=== PATIENT | female | born 1960 | race Two or more races ===

== ENCOUNTER 2022-03-31 14:41 | Inpatient (IN) | payer OTHER ==
[~2022-03-31] VITALS: Ht 160 cm; Wt 72.6 kg
[2022-03-31] MEDS ORDERED: PEPCID20 MG PO (16:21)
--- NOTE | 2022-03-31 16:29 | NUR ---
PACIENTE FEMINA ALERTA Y ORIENTADA X3, REFIERE PADECER DE HEMORROIDES Y TENER DOLOR ABDOMINAL. SE MONITOREAN VS Y SE UBICA EN OBSRVAICON.
--- NOTE | 2022-03-31 17:51 | NUR ---
PTE EVALUADA POR EL DR PEREA QUIEN ORDENA EL [place]. MR Vidya LUCEROERO ORIENTA SOBRE EL TX ORDENADO, LO CUAL REFIERE ENTENDER, REALIZA PRUEBAS DE LABORATORIO Y ADMINISTRA MEDICAMENTOS MARICEL ORDEN MEDICA Y SIGUIENDO MEDIDAS ASEPTICAS. CT PO NOTIFICADO A PERSONAL DE TURNO.
--- NOTE | 2022-03-31 22:41 | NUR ---
9:24 PM MR Vidya LUCEROERO COLECTA TUBOS PILOTOS PARA REQUISAR 3U DE PRBC MARICEL ORDEN MEDICA DEL DR PEREA. 9:35PM MR Vidya LUCEROERO COLECTA TUBO PARA TIPO Y TARSHA Y CANALIZA PTE EN MANO RT ANGIO #22 PATENTE Y ALVERTO DE EDEMA O ERITEMA. 9:41PM PTE FIRMA CONSENTIMIENTO PARA TRANSFUSION DE MOJGAN, SE NOTIFICA A MS ZIMMERMANGA PERSONAL DE [place] DE [facility]JGAN DE [facility] PARA REQUISAR 3 U DE PRBC Y [address] PEREA ORDENA TRANSFUNDIR UNIDAD DE PRBC DE EMERGENCIA. 10:10PM SE COMIENZA A TRANSFUNDIR PRIMERA UNIDAD DE PRBC DE EMERGENCIA MARICEL ORDEN MEDICA Y CON CONSENTIMIENTO YA PREVIAMENTE FIRMADO POR ELIAZAR AUTORIZANDO LA MISMA, AL MOMENTO PTE SE ENCUENTRA EN UNIDAD DE ICU-2, ALVERTO DE SIGNOS O SINTOMAS DE REACCION ADVERSA. PTE YA ENTREGADA A PERSONAL DEL AREA MS YOON.
== END 2022-04-03 15:49 | disposition home or self-care (01) | DRG 395 ==
LOC: ER 14:41 → MEDI 22:34 → ICU-2 22:34 → MEDJ 04-02 14:57
PROVIDERS: ADMIT Internal Medicine; ATTEND Internal Medicine
PROC: BW21ZZZ Computerized Tomography (CT Scan) of Abdomen and Pelvis (ICD-10-PCS; principal; 2022-03-31)
PROC: 30233N1 Transfusion of Nonautologous Red Blood Cells into Peripheral Vein, Percutaneous Approach (ICD-10-PCS; 2022-03-31)
PROC: 02H633Z Insertion of Infusion Device into Right Atrium, Percutaneous Approach (ICD-10-PCS; 2022-04-01)
PROC: 4A12X4Z Monitoring of Cardiac Electrical Activity, External Approach (ICD-10-PCS; 2022-04-02)
DX: K64.8 Other hemorrhoids (principal); D50.0 Iron deficiency anemia secondary to blood loss (chronic); Z20.822 Contact with and (suspected) exposure to COVID-19